=== PATIENT | male | born 1950 | race Caucasian/White ===

== ENCOUNTER 2017-08-20 20:55 | Inpatient (IN) | payer SELFPAY ==
[~2017-08-20] VITALS: Ht 177.8 cm; Wt 75.3 kg
[2017-08-21 01:22] VITALS: BP 165/105
[2017-08-21] MEDS ORDERED: LORazepam 1 MG TABLET PO PRN (01:45)
[2017-08-21] MEDS ORDERED: HALOPERIDOL 5 MG TABLET PO PRN (01:45)
[2017-08-21] MEDS ORDERED: ZOLPIDEM TARTRATE 10 MG TABLET PO PRN (01:45)
[2017-08-21 01:58] VITALS: BP 138/82
[2017-08-21] MEDS ORDERED: INFLUENZA VIRUS VACCINE QVS 2017-18 (3YR+)/PF 60 MCG/0.5 ML SYRINGE IM ONE (02:00)
[2017-08-21] MEDS ORDERED: PNEUMOCOCCAL VACCINE POLYVALENT 0.5 ML VIAL [PPSV23] IM ONE (03:45)
[2017-08-21] MEDS ORDERED: IBUPROFEN 400 MG TABLET PO PRN (08:15)
[2017-08-21] MEDS ORDERED: ACETAMINOPHEN 325 MG TABLET PO PRN (08:15)
[2017-08-21 09:00] VITALS: BP 140/90
[2017-08-21] MEDS: BuPROPion HCL XL 150 MG ER TABLET PO SCH (10:48)
[2017-08-21 16:23] VITALS: BP 116/78
[2017-08-22 02:00] VITALS: BP 113/64
[2017-08-22] MEDS: BuPROPion HCL XL 150 MG ER TABLET PO SCH (08:21)
[2017-08-22 08:57] VITALS: BP 115/77
[2017-08-22 16:35] VITALS: BP 119/79
[2017-08-23] VITALS: BP 110/69
[2017-08-23 08:34] VITALS: BP 108/72
[2017-08-23] MEDS: BuPROPion HCL XL 150 MG ER TABLET PO SCH (08:36)
[2017-08-23 16:07] VITALS: BP 138/83
== END 2017-08-23 15:52 | disposition home or self-care (01) | DRG 885 ==
LOC: B2S 08-21 01:41
PROVIDERS: ADMIT Psychiatry & Neurology Child & Adolescent Psychiatry; ATTEND Psychiatry & Neurology Child & Adolescent Psychiatry
DX: F33.3 Major depressive disorder, recurrent, severe with psychotic symptoms (principal); R45.851 Suicidal ideations; Z91.14 Patient's other noncompliance with medication regimen; F17.210 Nicotine dependence, cigarettes, uncomplicated; I10 Essential (primary) hypertension; F19.10 Other psychoactive substance abuse, uncomplicated; Z71.51 Drug abuse counseling and surveillance of drug abuser; Z59.0 Homelessness; Z65.3 Problems related to other legal circumstances; Z88.8 Allergy status to other drugs, medicaments and biological substances; Z79.899 Other long term (current) drug therapy
CPT/HCPCS: 90471